=== PATIENT | female | born 1955 | race Caucasian/White ===

== ENCOUNTER 2021-10-01 12:15 | Emergency (ER) | payer SELFPAY ==
[~2021-10-01] VITALS: Ht 154.9 cm; Wt 59.0 kg
--- NOTE | 2021-10-01 12:41 | NUR ---
DR WHEELER AT BEDSIDE
--- NOTE | 2021-10-01 13:15 | NUR ---
WHEELED OUT VIA RNEY FOR CT SCAN
[2021-10-01] MEDS ORDERED: TDAP [DIPH/PERTUSSIS/TET] 0.5 ML VIAL IM ONE (15:11)
[2021-10-01] MEDS: TDAP [DIPH/PERTUSSIS/TET] 0.5 ML VIAL IM ONE (15:12)
[2021-10-01 15:15] VITALS: BP 132/82
--- NOTE | 2021-10-01 15:15 | NUR ---
Patient discharged to home in stable condition. Written and verbal after care instructions given. Patient verbalizes understanding of instruction.
== END 2021-10-01 15:16 | disposition home or self-care (01) ==
LOC: ER 12:17
DX: S00.01XA Abrasion of scalp, initial encounter (principal); E78.5 Hyperlipidemia, unspecified; Z87.310 Personal history of (healed) osteoporosis fracture; W10.9XXA Fall (on) (from) unspecified stairs and steps, initial encounter; Y93.89 Activity, other specified; Y92.89 Other specified places as the place of occurrence of the external cause; Y99.8 Other external cause status
CPT/HCPCS: 70450-TC; 90715